=== PATIENT | male | born 1970 ===

== ENCOUNTER 2019-11-07 11:30 | Inpatient (IN) | payer OTHER ==
[~2019-11-07] VITALS: Ht 172.7 cm; Wt 79.4 kg
[2019-11-07] MEDS ORDERED: LUNESTA1 MG PO (14:40)
[2019-11-17] MEDS ORDERED: LUNESTA3 MG PO (09:35)
== END 2019-11-21 10:25 | disposition home or self-care (01) | DRG 330 ==
LOC: SURG 11-10 09:00 → EDBD 11-10 11:30 → O/R 11-10 11:30 → SURG 11-17 11:30
PROVIDERS: ADMIT Colon & Rectal Surgery; ATTEND Colon & Rectal Surgery
PROC: 0DBN4ZZ Excision of Sigmoid Colon, Percutaneous Endoscopic Approach (ICD-10-PCS; 2019-11-17)
PROC: 0WQF4ZZ Repair Abdominal Wall, Percutaneous Endoscopic Approach (ICD-10-PCS; 2019-11-17)
PROC: 0DNW4ZZ Release Peritoneum, Percutaneous Endoscopic Approach (ICD-10-PCS; 2019-11-17)
PROC: 0DJD8ZZ Inspection of Lower Intestinal Tract, Via Natural or Artificial Opening Endoscopic (ICD-10-PCS; 2019-11-17)
PROC: 0DTP4ZZ Resection of Rectum, Percutaneous Endoscopic Approach (ICD-10-PCS; principal; 2019-11-17 12:30)
DX: K57.30 Diverticulosis of large intestine without perforation or abscess without bleeding (principal); K43.6 Other and unspecified ventral hernia with obstruction, without gangrene; G47.30 Sleep apnea, unspecified